=== PATIENT | female | born 1985 | race Caucasian/White ===

== ENCOUNTER 2017-07-23 18:27 | Emergency (ER) | payer OTHER ==
[~2017-07-23] VITALS: Ht 177.8 cm; Wt 260.0 kg
[2017-07-23 18:41] VITALS: Ht 177.8 cm; Wt 260.0 kg
[2017-07-23] MEDS ORDERED: LEVETIRACETAM 1000 MG (PMX) 100 ML IVPB STA (19:03)
[2017-07-23] MEDS ORDERED: SOD CHLORIDE 0.9% 500 ML IV STA (19:03)
[2017-07-23] MEDS ORDERED: LIDOCAINE 4% CR ONE (20:22)
[2017-07-23] MEDS ORDERED: [UNRECOGNIZED DRUG - CODE] IM (20:58)
[2017-07-23] MEDS ORDERED: CHOL100062 PO (20:59)
[2017-07-23] MEDS ORDERED: ERGO500037 PO (21:00)
[2017-07-23] MEDS ORDERED: FOLI-49 PO (21:01)
[2017-07-23] MEDS ORDERED: TRAZ50TA18 PO (21:01)
[2017-07-23] MEDS ORDERED: LEVE-5 PO (21:01)
[2017-07-23] MEDS ORDERED: SENN-53 PO (21:02)
[2017-07-23] MEDS ORDERED: HYDR-906 PO (21:02)
[2017-07-23] MEDS ORDERED: ONDA4TAB95 PO (21:03)
[2017-07-23] MEDS ORDERED: RIVA15TA PO (21:04)
[2017-07-23] MEDS ORDERED: DOCU-159 PO (21:05)
[2017-07-23] MEDS ORDERED: DIVA500T15 PO (21:05)
[2017-07-23] MEDS ORDERED: GABA300C16 PO (21:06)
[2017-07-23] MEDS ORDERED: LITH300T5 PO (21:06)
[2017-07-23] MEDS ORDERED: MIRT7.5T8 PO (21:07)
[2017-07-23] MEDS ORDERED: RISP3TAB3 PO (21:07)
[2017-07-23] MEDS ORDERED: LORA10TA3 PO (21:08)
[2017-07-23] MEDS ORDERED: LACO200T2 PO (21:09)
[2017-07-23 21:34] LABS: BASOPHILS % 0.1 % (0.0-2.0); HEMATOCRIT 42.8 % (37.0-47.0); LYMPHOCYTES # 1.9 10^3/ul (0.8-2.9); LYMPHOCYTES % 20.7 % (15.0-51.0); MEAN CORPUSCULAR HEMOGLOBIN 28.2 pg (29.0-33.0); MEAN CORPUSCULAR HGB CONC 30.4 g/dl (32.0-37.0); MEAN CORPUSCULAR VOLUME 92.8 fl (82.0-101.0); MEAN PLATELET VOLUME 9.6 fl (7.4-10.4); MONOCYTE # 0.5 10^3/ul (0.3-0.9); MONOCYTES % 5.5 % (0.0-11.0); NEUTROPHILS % 73.3 % (39.0-77.0); PLATELET COUNT 333 10^3/UL (140-415); RED BLOOD COUNT 4.61 10^6/ul (4.20-5.40); RED CELL DISTRIBUTION WIDTH 14.2 % (11.5-14.5)
[2017-07-23 21:54] LABS: CALCIUM 9.9 mg/dl (8.4-10.2); CREATININE 0.64 mg/dl (0.44-1.00); POTASSIUM 4.1 mmol/L (3.5-5.1)
[2017-07-23] MEDS ORDERED: TYL500 PO (22:23)
--- NOTE | 2017-07-23 23:38 | ERD ---
ER Documentation Chief Complaint Date/Time DATE: 07/23/17 TIME: 23:36 Chief Complaint POSSIBLE SEIZURE HPI 31-year-old female comes in for possible having a seizure. She is currently on Keppra and Vimpat for seizures. She was in a facility where she said people told her that she was shaking twice today. She remembers some of the shaking. She has had no head injury. She does not have any acute pain. She has had no neurological deficits. ROS All systems reviewed and are negative except as per history of present illness. Medications Home Meds Active Scripts Acetaminophen* (Tylenol*) 500 Mg Tab, 500 MG PO Q6, #20 TAB Prov:FAWN BOCANEGRA DO 07/23/17 Reported Medications Lacosamide (Vimpat) 200 Mg Tablet, 200 MG PO BID, TAB 07/23/17 Loratadine* (Loratadine*) 10 Mg Tablet, 10 MG PO DAILY, #30 TAB 07/23/17 Risperidone* (Risperidone*) 3 Mg Tablet, 3 MG PO BID, TAB 07/23/17 Mirtazapine* (Mirtazapine*) 7.5 Mg Tablet, 7.5 MG PO HS, TAB 07/23/17 Gabapentin* (Gabapentin*) 300 Mg Capsule, 300 MG PO TID, #90 CAP 07/23/17 [place] Carbonate* ([place] Carbonate*) 300 Mg Tablet, 300 MG PO TID, TAB 07/23/17 Docusate Sodium* (Docusate Sodium*) 100 Mg Capsule, 100 MG PO BID, #60 CAP 07/23/17 Divalproex Sodium* (Divalproex ER*) 500 Mg Tab.er.24h, 500 MG PO Q12H, #30 TAB.SA 07/23/17 Rivaroxaban* (Xarelto*) 15 Mg Tablet, 15 MG PO Q5PM, TAB 07/23/17 Ondansetron Hcl* (Ondansetron Hcl*) 4 Mg Tablet, 4 MG PO Q8 Y for NAUSEA AND/OR VOMITING, TAB 07/23/17 Sennosides* (Senna Lax*) 8.6 Mg Tablet, 1 TAB PO BID, TAB 07/23/17 Hydrocodone/Acetaminophen ([place] 5-325 Tablet) 1 Each Tablet, 1 EACH PO Q6H, TAB 07/23/17 Trazodone Hcl* (Trazodone Hcl*) 50 Mg Tablet, 50 MG PO QHS, #30 TAB 07/23/17 Levetiracetam* (Keppra*) 500 Mg Tablet, 500 MG PO BID, TAB 07/23/17 Folic Acid* (Folic Acid*) 1 Mg Tablet, 1 MG PO DAILY, TAB 07/23/17 Ergocalciferol (Vitamin D2) (VITAMIN D2) 50,000 Unit Capsule, 56240 UNIT PO QSUNDAY, CAP 07/23/17 Cholecalciferol* (Vitamin D3*) 1,000 Unit Tablet, 1000 UNIT PO DAILY, TAB 07/23/17 Olanzapine Pamoate (Zyprexa Relprevv) 210 Mg Vial, 10 MG IM NEEDED Y for AGITATION/ANXIETY, #2 VIAL 07/23/17 Allergies Allergies: Coded Allergies: haloperidol (Unverified Allergy, Unknown, 07/23/17) PMhx/Soc Hx Alcohol Use: No Hx Substance Use: Yes (HX OF DRUG SEEKING BEHAVIOUR) Hx Tobacco Use: No Smoking Status: Never smoker Physical Exam Vitals Vital Signs Date Time Temp Pulse Resp B/P Pulse Ox O2 Delivery O2 Flow Rate FiO2 07/23/17 22:24 96 16 116/80 96 Room Air 07/23/17 20:55 97 16 120/49 95 07/23/17 18:41 98.7 111 16 120/49 95 Physical Exam Const: [] No distress Head: Atraumatic Eyes: Normal Conjunctiva, EOMI, PRL ENT: Normal External Ears, Nose and Mouth. Neck: Full range of motion..~ No meningismus. Resp: Clear to auscultation bilaterally Cardio: Regular rate and rhythm, no murmurs Abd: Soft, non tender, non distended. Normal bowel sounds Skin: No petechiae or rashes Back: No midline or flank tenderness Ext: No cyanosis, or edema Neur: Awake and alert, Alert and oriented 3, no focal deficits, cranial nerves II through XII intact, no cerebellar deficits Psych: Normal Mood and Affect Result Diagram: 07/23/17202907/23/172029 Results 24 hrs Laboratory Tests Test 07/23/17 20:30 07/23/17 22:00 White Blood Count 9.010^3/ul Red Blood Count 4.6110^6/ul Hemoglobin 13.0g/dl Hematocrit 42.8% Mean Corpuscular Volume 92.8fl Mean Corpuscular Hemoglobin 28.2pg Mean Corpuscular Hemoglobin Concent 30.4g/dl Red Cell Distribution Width 14.2% Platelet Count 81768^3/UL Mean Platelet Volume 9.6fl Neutrophils % 73.3% Lymphocytes % 20.7% Monocytes % 5.5% Eosinophils % 0.0% Basophils % 0.1% Nucleated Red Blood Cells % 0.0/100WBC Neutrophils # (Manual) 6.610^3/ul Lymphocytes # 1.910^3/ul Monocytes # 0.510^3/ul Eosinophils # 0.010^3/ul Basophils # 0.010^3/ul Nucleated Red Blood Cells # 0.010^3/ul Sodium Level 139mmol/L Potassium Level 4.1mmol/L Chloride Level 103mmol/L Carbon Dioxide Level 28mmol/L Anion Gap 12 Blood Urea Nitrogen 4mg/dl Creatinine 0.64mg/dl Glucose Level 85mg/dl Calcium Level 9.9mg/dl Lactic Acid Level 1.5mmol/L Current Medications Medications (Trade) Dose Ordered Sig/Mary Route PRN Reason Start Time Stop Time Status Last Admin Dose Admin Sodium Chloride 500 ml @ 500 mls/hr Q1H STAT IV 07/23/17 19:03 07/23/17 20:02 DC 07/23/17 19:03 Levetiracetam (Keppra 1,000mg/ 100ml (Pmx)) 100 ml @ 400 mls/hr ONCE STAT IVPB 07/23/17 19:03 07/23/17 19:17 DC 07/23/17 20:33 Lidocaine (Lmx 4% Plus) 5 applic STK-MED ONCE .ROUTE 07/23/17 20:22 07/23/17 20:23 DC Procedures/MDM I doubt this patient had a seizure. She has normal lactic acid. She is also observed shaking in the emergency room for a little while she was talking. She does have history of psychiatric disorders as well. She was loaded with a gram of Keppra and given a liter of IV fluids to prevent any further possible seizures. Advising her to call her neurologist first thing on Wednesday and primary care follow-up on Wednesday as well. Return precautions were also given. She then complained of a headache and was given Toradol and Tylenol which helped. Departure Diagnosis: Primary Impression: Seizure disorder Condition: Stable Patient Instructions: Seizure, Recurrent [Adult] Additional Instructions: Call your primary care doctor TOMORROW for an appointment during the next 2-3 days.See the doctor sooner or return here if your condition worsens before your appointment time. FAWN BOCANEGRA DO Jul 23, 2017 23:38
[2017-07-24 00:48] VITALS: BP 111/80; PULSE 99; RESP 16; TEMP 98.7
== END 2017-07-24 00:49 | disposition home or self-care (01) ==
LOC: E/R 18:27
DX: G40.909 Epilepsy, unspecified, not intractable, without status epilepticus (principal); R40.2132 Coma scale, eyes open, to sound, at arrival to emergency department; R40.2242 Coma scale, best verbal response, confused conversation, at arrival to emergency department; R40.2362 Coma scale, best motor response, obeys commands, at arrival to emergency department; R42 Dizziness and giddiness
CPT/HCPCS: 80048; 83605; 85025; 93005; 96374; J1953; J7040; Z7502; Z7610